=== PATIENT | female | born 1990 | race Caucasian/White ===

== ENCOUNTER 2016-09-22 16:58 | Emergency (ER) ==
[2016-09-22 17:09] VITALS: BP 127/82; TEMP 99; BMI 24.7
--- NOTE | 2016-09-22 17:20 | ED.PDOC ---
General ED Provider: Dr. CANDY HERNANDEZ Chief Complaint: Laceration Stated Complaint: WOUND CHECK RIGHT LEG Time Seen by Physician: 17:00 (ERTECH PRESENT AT ALL TIMES ) Mode of Arrival: Walk-In Information Source: Patient Nursing and Triage Documentation Reviewed and Agree: Yes (USED THREAD AND NEEDLE AND SUTURED RIGHT TIGH 2 DAYS AGO) Musculoskeletal Complaint Exam - Lower Extremity Complaint/Exam Location of Pain: Reports: Right, Thigh Mechanism of Injury: Reports: Trauma (LACERATION WHICH SHE SUTURED ) Onset/Duration: 2 DAYS AGO Onset of Pain: Reports: Days Initial Severity: Mild Current Severity: Mild Location: Reports: Discrete (TIGH ) Character: Reports: Aching Alleviating: Reports: Rest Aggravating: Reports: Movement Associated Signs and Symptoms: Reports: Redness, Bruising (SE PHOTOSX 2 ) DVT Risk Factors: Reports: None Septic Arthritis Risk Factors: Reports: None Related Surgical History: Reports: None Review of Systems - Review Of Systems Constitutional: Reports: No symptoms Eyes: Reports: No symptoms Ears, Nose, Mouth, Throat: Reports: No symptoms Respiratory: Reports: No symptoms Cardiac: Reports: No symptoms GI: Reports: No symptoms : Reports: No symptoms Musculoskeletal: Reports: No symptoms Skin: Reports: Other (LACERATION SEE PHOTOS) Neurological: Reports: No symptoms Endocrine: Reports: No symptoms Hematologic/Lymphatic: Reports: No symptoms All Other Systems: Reviewed and Negative Past Medical History - Past Medical History Previously Healthy: Yes Endocrine: Reports: None Cardiovascular: Reports: None Respiratory: Reports: None Hematological: Reports: None Gastrointestinal: Reports: None Genitourinary: Reports: None Neuro/Psych: Reports: None Musculoskeletal: Reports: None Cancer: Reports: None Last Menstrual Period: 09/07/2016 - Surgical History General Surgical History: Reports: None - Family History Family History: Reports: None - Social History Smoking Status: Current some day smoker Hx Substance Use: No Alcohol Screening: None - Immunizations Tetanus Shot up to Date: Yes Physical Exam - Physical Exam Appearance: Well-appearing, No pain distress, Well-nourished Eyes: SAMIA, EOMI, Conjunctiva clear ENT: Ears normal, Nose normal, Oropharynx normal Respiratory: Airway patent, Breath sounds clear, Breath sounds equal, Respirations nonlabored Cardiovascular: RRR, Pulses normal, No rub, No murmur GI/: Soft, Nontender, No masses, Bowel sounds normal, No Organomegaly Musculoskeletal: Normal strength, ROM intact, No edema, No calf tenderness Skin: Warm, Dry (3MM LINEAR LACERATION RIGHT TIGH WITH BRUSING ) Neurological: Sensation intact, Motor intact, Reflexes intact, Cranial nerves intact, Alert, Oriented Psychiatric: Affect appropriate, Mood appropriate Critical Care Note - Critical Care Note Total Time (mins): 0 Course - Course Vital Signs: Temp Pulse Resp BP Pulse Ox 09/22/16 17:02 99 F 90 16 127/82 99 Departure - Departure Time of Disposition: 17:21 (PT PLACED ON KEFLEX AND URGED TO FOLLOW UP WITH CLINIC AND AVOID SUTURING HERSELF ) Disposition: HOME SELF-CARE Discharge Problem: Laceration - injury Instructions: Laceration (ED), Wound Healing and Your Diet (ED), Laceration Without Closure (ED) Condition: Good Pt referred to PMD for follow-up: No Additional Instructions: Please call your Family Physician as soon as possible to schedule a follow-up appointment. Home Medications: Ambulatory Orders 1 [No Reported Medications] 09/22/16 Disposition Discussed With: Patient
== END 2016-09-22 17:31 | disposition home or self-care (01) ==
LOC: ED 16:58
DX: S71.111A Laceration without foreign body, right thigh, initial encounter (principal); W45.8XXA Other foreign body or object entering through skin, initial encounter
CPT/HCPCS: 99282

== ENCOUNTER 2018-04-22 09:31 | Outpatient (CLI) | END 2018-04-22 09:32 | disposition home or self-care (01) | LOC: RHC-LAB 09:31 | PROVIDERS: ATTEND Nurse Practitioner Family | DX: R53.83 Other fatigue (principal) | CPT/HCPCS: 36415; 80053; 80061; 82306; 84443; 85025 ==

== ENCOUNTER 2018-07-10 19:38 | Emergency (ER) ==
[2018-07-10 19:54] VITALS: BP 115/66; TEMP 97.6; BMI 25.9
[2018-07-10] MEDS ORDERED: AMOXIL PO STA (20:15)
[2018-07-10] MEDS ORDERED: MOTRIN PO STA (20:15)
--- NOTE | 2018-07-10 20:17 | ED.PDOC ---
General ED Provider: Dr. ANABELLA ALLEN Chief Complaint: Earache Stated Complaint: Patient complains of right ear ache for 2 days worse today. Has been taking Naproxsen. Time Seen by Physician: 20:15 Mode of Arrival: Walk-In Information Source: Patient Exam Limitations: No limitations Primary Care Provider: KIERAN BERMUDEZ Nursing and Triage Documentation Reviewed and Agree: Yes Does patient meet sepsis criteria?: No System Inflammatory Response Syndrome: Not Applicable Sepsis Protocol: For patient's 13 years and over: Temp is 96.8 and below OR 101 and greater Pulse >90 BPM Resp >20/minute Acutely Altered Mental Status Are patient's symptoms suggestive of a new infection, such as: -Pneumonia -Skin, Soft Tissue -Endocarditis -UTI -Bone, Joint Infection -Implantable Device -Acute Abdominal Infection -Wound Infection -Meningitis -Blood Stream Catheter Infection -Unknown EENT Complaint Exam - Ear Complaint/Exam Onset/Duration: 1 day Symptoms Are: Still present Timing: Constant Initial Severity: Moderate Current Severity: Severe Character: Reports: Dull pain, Aching pain Alleviating: Reports: None Associated Signs and Symptoms: Denies: Ear trauma, Ear swelling, Pain to external face Vesicles to External Pinna: No Vesicles to Tragus: No TMJ Tenderness: None Mastoid Tenderness: None Tragal Tenderness: None External Canal: Normal Material in Canal: Absent: Cerumen, Cerumen impaction, Discharge, Blood, Foreign body Tympanic Membrane: Erythema, Bulging, Dullness Differential Diagnoses: Otitis Media Review of Systems - Review Of Systems Constitutional: Reports: No symptoms Eyes: Reports: No symptoms Ears, Nose, Mouth, Throat: Reports: Ear pain Respiratory: Reports: No symptoms Cardiac: Reports: No symptoms GI: Reports: No symptoms : Reports: No symptoms Musculoskeletal: Reports: No symptoms Skin: Reports: No symptoms Neurological: Reports: Anxiety Endocrine: Reports: No symptoms Hematologic/Lymphatic: Reports: No symptoms All Other Systems: Reviewed and Negative Past Medical History - Past Medical History Previously Healthy: Yes Endocrine: Reports: None Cardiovascular: Reports: None Respiratory: Reports: None Hematological: Reports: None Gastrointestinal: Reports: None Genitourinary: Reports: None Neuro/Psych: Reports: None Musculoskeletal: Reports: None Cancer: Reports: None Last Menstrual Period: PRESENTLY - Surgical History General Surgical History: Reports: None - Family History Family History: Reports: None - Social History Smoking Status: Current some day smoker Hx Substance Use: No Alcohol Screening: None - Immunizations Tetanus Shot up to Date: (UNKNOWN) Physical Exam - Physical Exam Appearance: Ill-appearing Ill-appearing: Mild Pain Distress: Moderate Eyes: SAMIA, EOMI, Conjunctiva clear ENT: Erythema (on the right ear ) Respiratory: Airway patent, Breath sounds clear, Breath sounds equal, Respirations nonlabored Cardiovascular: RRR, Pulses normal, No rub, No murmur Musculoskeletal: Normal strength, ROM intact, No edema, No calf tenderness Skin: Warm, Dry, Normal color Neurological: Sensation intact, Motor intact, Alert, Oriented Psychiatric: Affect appropriate, Mood appropriate Critical Care Note - Critical Care Note Total Time (mins): 0 Course - Course Vital Signs: Temp Pulse Resp BP Pulse Ox 07/10/18 19:38 97.6 F 83 20 115/66 98 Departure - Departure Time of Disposition: 20:45 Disposition: HOME SELF-CARE Discharge Problem: Otitis media Qualifiers: Otitis media type: other nonsuppurative Chronicity: acute Laterality: right Recurrence: not specified as recurrent Qualified Code(s): H65.191 - Other acute nonsuppurative otitis media, right ear Instructions: Ear Infection (ED) Condition: Stable Pt referred to PMD for follow-up: Yes IPMP verified?: No Additional Instructions: Take medications as prescribed Follow up with PCP in 3 days Prescriptions: Amoxicillin [Amoxil] 500 mg PO TID #30 capsule Ibuprofen [Motrin] 600 mg PO Q6H PRN #30 tablet PRN Reason: Analgesia Allergies/Adverse Reactions: Allergies No Known Allergies Allergy (Unverified 05/18/18 11:57) Home Medications: Ambulatory Orders Amoxicillin [Amoxil] 500 mg PO TID #30 capsule 07/10/18 Ibuprofen [Motrin] 600 mg PO Q6H PRN #30 tablet 07/10/18 Disposition Discussed With: Patient
== END 2018-07-10 20:36 | disposition home or self-care (01) ==
LOC: ED 19:38
DX: H65.191 Other acute nonsuppurative otitis media, right ear (principal)
CPT/HCPCS: 99282

== ENCOUNTER 2018-10-15 14:16 | Outpatient (CLI) ==
[2018-08-20 10:48] VITALS: BMI 18.6
--- NOTE | 2018-10-15 14:48 | DI ---
EXAM: Three views of the thoracic spine. History: Thoracic back pain. Findings: No acute fracture or subluxation of the thoracic spine. Disc space heights are preserved. No abnormal calcifications or radiopaque foreign bodies. Impression: Unremarkable radiograph of the thoracic spine
== END 2018-10-15 14:17 | disposition home or self-care (01) ==
LOC: RAD 14:16
PROVIDERS: ATTEND Nurse Practitioner Family
DX: M54.6 Pain in thoracic spine (principal); G89.29 Other chronic pain

== ENCOUNTER 2018-10-25 09:56 | Outpatient (CLI) ==
[2018-08-20 10:48] VITALS: BMI 18.6
--- NOTE | 2018-10-25 12:05 | MRI ---
EXAM: Thoracic spine MRI without contrast. HISTORY: Thoracic spine pain. COMPARISON: Thoracic spine radiographs 10/15/[address] abdomen and pelvis 08/20/2018. TECHNIQUE: Multiplanar, multisequence MR images were acquired of the thoracic spine without contrast . FINDINGS: 12 rib-bearing thoracic vertebra are present. The thoracic cord has no abnormal T2 hyperi ntensities. Conus medullaris ends at the top of L1. The thoracic vertebra are generally normal in h eight, AP alignment and intrinsic bone marrow signal. There is minor chronic concavity of the T5 and T7 superior endplates and minor chronic left anterior wedging of the T6 vertebra that is considered developmental. Small ventral and lateral osteophytes are present in the mid thoracic spine and there is mild disc space narrowing and disc desiccation at T7-8. There is ventral spondylosis at T8-9 and T9-10 with minor focal modic type 1 anterior endplate changes. Mild disc space narrowing is present at T5-6 and there is minor endplate irregularity of the mid and lower thoracic spine with central di sc desiccation from T8-9 to L1-2. The partially visualized liver, spleen and kidneys are unremarkable. There are no paravertebral mass es. T1-2, T2-3, T3-4, T4-5: The intervertebral discs are normal. T5-6: There is minor left posterior spondylotic disc bulge without central canal stenosis. Neural f oramina are patent. T6-7: The intervertebral disc is normal. T7-8: There is a minor dorsal spondylotic ridge and small central disc protrusion that minimally ind ents the ventral cord without edema. There is no central canal stenosis. Neural foramina are patent . T8-9: The intervertebral disc is normal. T9-10, T10-11: The intervertebral discs are normal. There is minor bilateral facet arthropathy and ligamentum flavum hypertrophy without foraminal stenosis or central canal stenosis. T11-12, T12-L1: The intervertebral discs are normal. IMPRESSION: 1. Small central disc protrusion T7-8 that minimally indents the thoracic cord without edema. 2. Minor thoracic degenerative spondylosis without spinal stenosis or foraminal stenosis.
== END 2018-10-25 09:57 | disposition home or self-care (01) ==
LOC: RAD 09:56
PROVIDERS: ATTEND Nurse Practitioner Family
DX: M54.6 Pain in thoracic spine (principal); G89.29 Other chronic pain

== ENCOUNTER 2019-05-02 09:15 | Emergency (ER) ==
[2019-05-02 09:21] VITALS: BP 118/75; TEMP 98.5; BMI 27.4
[2019-05-02 10:02] LABS: URINE PREGNANCY TEST NEGATIVE (NEGATIVE)
--- NOTE | 2019-05-02 11:13 | ED.PDOC ---
General ED Provider: Dr. CANDY HERNANDEZ Chief Complaint: Back Pain Stated Complaint: LEFT FLANK AND LOWER ABDOMINAL PAIN SAME SIDE Time Seen by Physician: 09:20 (LESLIE PRESENT AT ALL TIMES ) Mode of Arrival: Walk-In Information Source: Patient Exam Limitations: No limitations Primary Care Provider: KIERAN BERMUDEZ Nursing and Triage Documentation Reviewed and Agree: Yes Does patient meet sepsis criteria?: No System Inflammatory Response Syndrome: Not Applicable Sepsis Protocol: For patient's 13 years and over: Temp is 96.8 and below OR 101 and greater Pulse >90 BPM Resp >20/minute Acutely Altered Mental Status Are patient's symptoms suggestive of a new infection, such as: -Pneumonia -Skin, Soft Tissue -Endocarditis -UTI -Bone, Joint Infection -Implantable Device -Acute Abdominal Infection -Wound Infection -Meningitis -Blood Stream Catheter Infection -Unknown GI Complaint Exam - Abdominal Pain Complaint/Exam Onset: Gradual Duration: 1 DAY Symptoms Are: Still present Timing: Intermittent Initial Severity: Mild Current Severity: Mild Location of Pain: LLQ, Suprapubic Radiates To: Reports: Back. Denies: Chest, Flank, LLQ, RLQ Character: Reports: Aching Aggravating: Reports: None Alleviating: Reports: None Associated Signs and Symptoms: Denies: Diaphoresis, Fever, Cough, Chest pain, Dizziness, Back pain, Constipation, Blood in stool, Dysuria, Urinary frequency, Decreased urine output, Decreased appetite, Vaginal bleeding, Vaginal discharge , Nausea, Vomiting, Diarrhea, Sore throat, Decreased activity Related History: Reports: Similar episode AAA Risk Factors: Reports: None Cardiac Risk Factors: Reports: None Ectopic Risk Factors: Reports: None Ovarian Torsion Risk Factors: Reports: Reproductive age Surgical Obstruction Risk Factors: Reports: None Related Surgical History: Reports: None Patient Rh Status: Unknown Abdominal Findings: Present: None Differential Diagnoses: Appendicitis, Bowel Obstruction, Constipation, Renal Colic, Ureteral Stone, UTI, (NO PLEVIC EXAM DONE ), Ovarian Cyst Review of Systems - Review Of Systems Constitutional: Reports: No symptoms Eyes: Reports: No symptoms Ears, Nose, Mouth, Throat: Reports: No symptoms Respiratory: Reports: No symptoms Cardiac: Reports: No symptoms GI: Reports: Abdominal pain : Reports: No symptoms Musculoskeletal: Reports: Back pain (LEFT FLANK) Skin: Reports: No symptoms Neurological: Reports: No symptoms Endocrine: Reports: No symptoms Hematologic/Lymphatic: Reports: No symptoms All Other Systems: Reviewed and Negative Past Medical History - Past Medical History Previously Healthy: Yes Endocrine: Reports: None Cardiovascular: Reports: None Respiratory: Reports: None Hematological: Reports: Anemia Gastrointestinal: Reports: None Genitourinary: Reports: None Neuro/Psych: Reports: None Musculoskeletal: Reports: None Cancer: Reports: None Last Menstrual Period: Apr 20 Other Pertinent Past Medical History: Tonsilitis - Surgical History General Surgical History: Reports: (x 2 ) - Family History Family History: Reports: None - Social History Smoking Status: Former smoker Hx Substance Use: No Alcohol Screening: None - Immunizations Tetanus Shot up to Date: Yes Physical Exam - Physical Exam Appearance: Well-appearing, No pain distress, Well-nourished Eyes: SAMIA, EOMI, Conjunctiva clear ENT: Ears normal, Nose normal, Oropharynx normal Respiratory: Airway patent, Breath sounds clear, Breath sounds equal, Respirations nonlabored Cardiovascular: RRR, Pulses normal, No rub, No murmur GI/: Soft, Nontender, No masses, Bowel sounds normal, No Organomegaly Musculoskeletal: Normal strength, ROM intact, No edema, No calf tenderness Skin: Warm, Dry, Normal color Neurological: Sensation intact, Motor intact, Reflexes intact, Cranial nerves intact, Alert, Oriented Psychiatric: Affect appropriate, Mood appropriate Interpretation - Radiology Interpretation Radiology Interpretation By: Radiologist Radiology Results: No acute changes Exam Interpreted: CT Scan Re-Evaluation - Re-Evaluation Time of Re-Evaluation: 12:13 Status: Improved Vital Signs Stable: Yes Pain Level: 0 Appearance: NAD Lungs: Clear Skin: Warm and Dry Neuro: Alert and Oriented X3 CV: RRR Critical Care Note - Critical Care Note Total Time (mins): 0 Course - Course Hematology/Chemistry: 05/02/19 09:54 05/02/19 09:54 Orders, Labs, Meds: Lab Review 05/02/19 05/02/19 05/02/19 09:38 09:38 09:54 WBC 5.83 RBC 4.34 Hgb 11.6 L Hct 35.9 L MCV 82.7 MCH 26.7 L MCHC 32.3 RDW Coeff of Bhanu 14.0 Plt Count 236 Immature Gran % (Auto) 0.3 Neut % (Auto) 60.3 Lymph % (Auto) 28.6 Warren % (Auto) 7.2 Eos % (Auto) 2.9 Baso % (Auto) 0.7 Immature Gran # (Auto) 0.0 Neut # (Auto) 3.5 Lymph # (Auto) 1.7 Warren # (Auto) 0.4 Eos # (Auto) 0.2 Baso # (Auto) 0.0 Sodium Potassium Chloride Carbon Dioxide Anion Gap BUN Creatinine Estimated GFR (MDRD) BUN/Creatinine Ratio Glucose Calcium Total Bilirubin AST ALT Alkaline Phosphatase Total Protein Albumin Globulin Albumin/Globulin Ratio Urine Color Yellow Urine Clarity Slightly Urine pH 5.5 Ur Specific [place] 1.025 Urine Protein Negative Urine Glucose (UA) Negative Urine Ketones Negative Urine Blood Negative Urine Nitrite Negative Urine Bilirubin Negative Urine Urobilinogen 0.2 Ur Leukocyte Esterase Negative Ur Squamous Epith Cells 30-50 Urine Bacteria Trace Urine Test Negative 05/02/19 09:54 WBC RBC Hgb Hct MCV MCH MCHC RDW Coeff of Bhanu Plt Count Immature Gran % (Auto) Neut % (Auto) Lymph % (Auto) [place] % (Auto) Eos % (Auto) Baso % (Auto) Immature Gran # (Auto) Neut # (Auto) Lymph # (Auto) [place] # (Auto) Eos # (Auto) Baso # (Auto) Sodium 138.8 Potassium 3.94 Chloride 106.1 Carbon Dioxide 26.5 Anion Gap 10.14 BUN 11.8 Creatinine 0.74 Estimated GFR (MDRD) 95.00 BUN/Creatinine Ratio 15.94 Glucose 65.1 L Calcium 9.12 Total Bilirubin 0.43 AST 23.6 ALT 15.2 Alkaline Phosphatase 39.2 Total Protein 7.51 Albumin 4.37 Globulin 3.14 Albumin/Globulin Ratio 1.39 Urine Color Urine Clarity Urine pH Ur Specific [place] Urine Protein Urine Glucose (UA) Urine Ketones Urine Blood Urine Nitrite Urine Bilirubin Urine Urobilinogen Ur Leukocyte Esterase Ur Squamous Epith Cells Urine Bacteria Urine Test Orders Category Date Time Status CBC W/ AUTO DIFF Stat LAB 05/02/19 09:54 Completed COMPREHENSIVE METABOLIC PANEL Stat LAB 05/02/19 09:54 Completed URINALYSIS C & S IF INDICATED Stat LAB 05/02/19 09:38 Completed URINE Stat LAB 05/02/19 09:[address] ABD/PEL WO RENAL STONE PROT Stat RADS 05/02/19 09:49 Completed Vital Signs: Temp Pulse Resp BP Pulse Ox 05/02/19 09:16 98.5 F 71 18 118/75 98 Departure - Departure Time of Disposition: 12:13 Disposition: HOME SELF-CARE Discharge Problem: Low back pain Qualifiers: Chronicity: unspecified Back pain laterality: left Sciatica presence: without sciatica Qualified Code(s): M54.5 - Low back pain Instructions: Back Pain (ED) Condition: Good Pt referred to PMD for follow-up: Yes IPMP verified?: No Additional Instructions: Please call your Family Physician as soon as possible to schedule a follow-up appointment. Allergies/Adverse Reactions: Allergies No Known Allergies Allergy (Verified 05/02/19 09:35) Home Medications: Ambulatory Orders 1 [No Reported Medications] 04/14/19 Disposition Discussed With: Patient
--- NOTE | 2019-05-02 11:20 | CT ---
EXAM: CT of the abdomen pelvis without contrast History: Left flank pain. Technique: Multiplanar CT images through the abdomen pelvis were obtained without the administration of IV contrast Findings: Lung bases are clear. No acute osseous abnormalities. No renal stones and no hydronephrosis. No perinephric inflammation. No ureteral calculi. No gallst ones identified by CT. No focal liver or splenic lesions. No peripancreatic inflammation. Adrenal glands are unremarkable. Evaluation for lymph nodes is limited due to the lack of contrast administr ation. No bowel obstruction. No bladder wall thickening. No abdominal aortic aneurysm. The visual ized appendix is not dilated or inflamed. No perirectal inflammation. Adnexal structures appear jennifer ropriate for patient's age. Impression: 1. No acute intra-abdominal or pelvic process. 2. No renal or ureteral calculi and no hydronephrosis
== END 2019-05-02 12:21 | disposition home or self-care (01) ==
LOC: ED 09:15
DX: M54.5 Low back pain (principal); R10.32 Left lower quadrant pain
CPT/HCPCS: 36415; 80053; 81001; 81025; 85025; 99283